=== PATIENT | male | born 1965 | race Two or more races ===

== ENCOUNTER 2018-05-13 18:05 | Emergency (ER) | payer BC, OTHER ==
[2018-05-13] MEDS ORDERED: Sodium Chloride 0.9% 10 ML Syringe FLUSH PRN (18:27)
[2018-05-13] MEDS ORDERED: Iopamidol 612 MG/ML 150 ML Bottle IVPUSH ONE (18:27)
[2018-05-13] MEDS ORDERED: HYDROmorphone 1 MG/ML Syringe IVPUSH ONE (18:30)
[2018-05-13] MEDS ORDERED: Sodium Chloride 0.9% 1,000 ML IV SCH (18:30)
--- NOTE | 2018-05-13 20:14 | EDM.PDOC ---
ED HPI GENERAL MEDICAL PROBLEM - General Chief Complaint: Trauma Stated Complaint: [facility] Time Seen by Provider: 05/13/18 18:13 Source of Information: Reports: Patient, RN Notes Reviewed - History of Present Illness INITIAL COMMENTS - FREE TEXT/NARRATIVE: 53 year old male had the large fork of a fork lift come loose from skid steer or unit it was attached to, fell striking his head, possibly upper back. Pt was wearing hard hat. Was either dazed or may have head brief LOC. Mild Craig now, moderate neck pain, Pain L thigh. He has been brought to [facility] by ambulance. This was called as a trauma alert due to mechanism of injury. He has some L chest pain with deep breathing. Does not feel short of breath. No abd pain, nausea, vomiting or unusual dizziness. Neck Pain Score (Numeric/FACES): 10 Bilateral Shoulder Pain Score (Numeric/FACES): 10 - Related Data Allergies Allergy/AdvReac Type Severity Reaction Status Date / Time No Known Allergies Allergy Verified 05/13/18 18:56 Home Meds: Home Meds Htn Med 05/13/18 [History] blood 05/13/18 [History] Past Medical History Cardiovascular History: Reports: Hypertension Social & Family History - Family History Family Medical History: Noncontributory - Tobacco Use Smoking Status *Q: Current Every Day Smoker Years of Tobacco use: 3 Packs/Tins Daily: 2 - Caffeine Use Caffeine Use: Reports: Coffee - Recreational Drug Use Recreational Drug Use: No Review of Systems - Review of Systems Review Of Systems: See Below Constitutional: Reports: No Symptoms Eyes: Reports: No Symptoms Ears: Reports: No Symptoms, Other (no discharge) Nose: Reports: No Symptoms Mouth/Throat: Reports: No Symptoms Respiratory: Reports: Pleuritic Chest Pain. Denies: Shortness of Breath Cardiovascular: Reports: Chest Pain (mild, gone) GI/Abdominal: Denies: Abdominal Pain, Nausea, Vomiting Musculoskeletal: Reports: Back Pain (mild upper back) Neurological: Reports: Dizziness, Headache. Denies: Numbness, Tingling, Trouble Speaking ED EXAM, GENERAL - Physical Exam Exam: See Below General Appearance: Alert, Mild Distress Eye Exam: Bilateral Eye: PERRL Ears: Normal External Exam, Normal Canal Nose: Normal Inspection Throat/Mouth: Normal Inspection Head: Atraumatic. No: Facial Swelling, Facial Tenderness Neck: Supple, Tender Midline (mild), Other (no visible swelling or bruising) Respiratory/Chest: No Respiratory Distress, Lungs Clear, Other (mild tenderness L ant. chest, no visible swelling or bruising) Cardiovascular: Regular Rate, Rhythm GI/Abdominal: Tender (mild tenderness R upper abd and L upper abd). No: Guarding, Rebound Extremities: Other (mild tenderness L thigh, no visible bruising or swelling, good ROM without pain) Neurological: Alert, Oriented, No Motor/Sensory Deficits Skin Exam: Warm, Dry, Normal Color Course - Vital Signs Last Recorded V/S: Last Vital Signs Temp 98.0 F 05/13/18 18:05 Pulse 67 05/13/18 21:39 Resp 16 05/13/18 21:39 BP 169/84 H 05/13/18 21:39 Pulse Ox 98 05/13/18 21:39 - Orders/Labs/Meds Labs: Laboratory Tests 05/13/18 05/13/18 Range/Units 18:55 18:55 WBC 8.81 (4.23-9.07) K/mm3 RBC 4.73 (4.63-6.08) M/mm3 Hgb 14.6 (13.7-17.5) gm/L Hct 43.6 (40.1-51.0) % MCV 92.2 (79.0-92.2) fl MCH 30.9 (25.7-32.2) pg MCHC 33.5 (32.2-35.5) g/dl RDW Std Deviation 40.6 (35.1-43.9) fL Plt Count 282 (163-337) K/mm3 MPV 10.6 (9.4-12.3) fl Neut % (Auto) 68.6 H (34.0-67.9) % Lymph % (Auto) 21.8 (21.8-53.1) % Warrick % (Auto) 5.6 (5.3-12.2) % Eos % (Auto) 3.4 (0.8-7.0) Baso % (Auto) 0.3 (0.1-1.2) % Neut # (Auto) 6.04 H (1.78-5.38) K/mm3 Lymph # (Auto) 1.92 (1.32-3.57) K/mm3 Warrick # (Auto) 0.49 (0.30-0.82) K/mm3 Eos # (Auto) 0.30 (0.04-0.54) K/mm3 Baso # (Auto) 0.03 (0.01-0.08) K/mm3 Sodium 141 (136-145) mEq/L Potassium 3.6 (3.5-5.1) mEq/L Chloride 105 (98-107) mEq/L Carbon Dioxide 26 (21-32) mEq/L Anion Gap 13.6 (5-15) BUN 13 (7-18) mg/dL Creatinine 0.8 (0.7-1.3) mg/dL Est Cr Clr Drug Dosing TNP Estimated GFR (MDRD) > 60 (>60) mL/min BUN/Creatinine Ratio 16.3 (14-18) Glucose 95 (74-106) mg/dL Calcium 8.5 (8.5-10.1) mg/dL Total Bilirubin 0.8 (0.2-1.0) mg/dL AST 28 (15-37) U/L ALT 39 (16-63) U/L Alkaline Phosphatase 65 (46-116) U/L Total Protein 6.5 (6.4-8.2) g/dl Albumin 3.7 (3.4-5.0) g/dl Globulin 2.8 gm/dL Albumin/Globulin Ratio 1.3 (1-2) Meds: Medications Discontinued Medications Generic Name Dose Route Start Last Admin Trade Name Freq PRN Reason Stop Dose Admin Hydromorphone HCl 1 mg 05/13/18 18:30 05/13/18 19:01 Dilaudid IVPUSH 05/13/18 18:31 1 mg ONETIME ONE Administration Sodium Chloride 1,000 mls @ 150 mls/hr 05/13/18 18:30 05/13/18 19:03 Normal Saline IV 150 mls/hr ASDIRECTED EDWINA Administration Iopamidol 150 ml 05/13/18 18:27 05/13/18 18:39 Isovue-300 (61%) IVPUSH 05/13/18 18:28 150 ml ONETIME ONE Administration Sodium Chloride 10 ml 05/13/18 18:27 05/13/18 18:41 Saline Flush FLUSH 10 ml ONETIME PRN Administration IV FLUSH - Re-Assessments/Exams Free Text/Narrative Re-Assessment/Exam: 05/15/18 13:54 CT of head, neck, chest, abd, pelvis were all normal. See Radiologist report for details. We did get him up walking after that and he did well with that. Discharge instr. as documented. Departure - Departure Time of Disposition: 20:12 Disposition: Home, Self-Care 01 Condition: Fair Clinical Impression: Concussion with brief (less than one hour) loss of consciousness Chest wall contusion Qualifiers: Encounter type: initial encounter Laterality: unspecified laterality Qualified Code(s): S20.219A - Contusion of unspecified front wall of thorax, initial encounter Contusion of left thigh Qualifiers: Encounter type: initial encounter Qualified Code(s): S70.12XA - Contusion of left thigh, initial encounter Cervical strain, acute Qualifiers: Encounter type: initial encounter Qualified Code(s): S16.1XXA - Strain of muscle, fascia and tendon at neck level, initial encounter - Discharge Information Instructions: Contusion, [id number] Referrals: PCP,None [Primary Care Provider] - Forms: ED Department Discharge, ED Return to Work/School Form Additional Instructions: The treatment for concussion is rest and time, no work tomorrow, headache is completely gone you may return to work Wednesday light duty until Wednesday and then full duty as tolerated. He may alternate Tylenol and ibuprofen as needed. Return to ED as needed if symptoms worsening in any way.
--- NOTE | 2018-05-14 15:30 | CT ---
Head CT Technique: Multiple axial sections through the brain were obtained. Intravenous contrast was not utilized. Comparison: No previous intracranial imaging is available. Findings: Ventricles along with basal cisterns and sulci over the convexities are within normal limits for the patient's age. No abnormal parenchymal densities are seen. No evidence of intracranial hemorrhage. No midline shift or mass effect is seen. Bone window settings were reviewed which show no acute calvarial abnormality. Visualized sinuses are clear. Impression: 1. Nothing acute is appreciated on noncontrast head CT exam. Diagnostic code #1 I agree with preliminary report from [facility], finalized on 05/13/18, 8:03 PM Central Time
--- NOTE | 2018-05-14 15:50 | CT ---
CT chest Technique: Multiple axial sections through the chest were obtained. Intravenous contrast was utilized. Comparison: No prior chest imaging. Findings: Mediastinum and hilar regions appear within normal limits. Incidental calcified lymph node is seen within the mediastinum. No pericardial thickening is seen. Lungs are clear with no acute pulmonary contusion or other parenchymal change. No pneumothorax is seen. No pleural effusions are identified. No discrete rib fracture is seen. Slight degenerative change is noted within the spine without acute abnormality. Reconstructed sagittal images of the sternum appear intact. Impression: 1. Nothing acute is seen on CT study of the chest. Diagnostic code #2 I agree with preliminary report from [facility], finalized on 05/13/18, 8:[address] abdomen and pelvis Technique: Multiple axial sections were obtained from above the dome of the diaphragm inferiorly through the pubic symphysis. Intravenous contrast was utilized. No oral contrast has been given. Delayed images were also obtained through the abdomen and pelvis. Comparison: No prior abdominal imaging. Findings: Very small hiatal hernia is noted. Liver contains no focal abnormality. Gallbladder contains no abnormal calcifications. Spleen appears within normal limits. Adrenal glands show no abnormality. Pancreas is normal. Kidneys show symmetric contrast enhancement without hydronephrosis or mass. Aorta shows no aneurysm. No retroperitoneal adenopathy or mesenteric abnormalities are seen. No pelvic mass or adenopathy is seen. Delayed images show contrast within the ureters. No ureteral dilatation is seen. No extravasation of any contrast is noted. Contrast is noted within the bladder. Bone window settings were reviewed which show scattered degenerative change within the thoracic spine. Bilateral spondylitic defects are noted at L5-S1. Small sclerotic lesion is noted within the right iliac wing felt compatible with incidental bone island. Additional bone island noted within the left hip. Impression: 1. Incidental findings. Nothing acute is seen on CT study of the abdomen and pelvis. Diagnostic code #2 I agree with preliminary report from [facility], finalized on 05/13/18, 7:52 PM Central Time
--- NOTE | 2018-05-14 15:50 | CT ---
CT cervical spine Technique: Multiple axial sections were obtained from above C1 inferiorly through the T1 vertebral body. Reconstructed sagittal and coronal images were reviewed. Comparison: No prior cervical spine imaging. Findings: Vertebral body heights and disc spaces are maintained. Vertebral bodies and posterior arches are intact. No fracture is seen. No bony central or lower bony neural foraminal stenosis is seen. Incidental ligamentum nuchal calcification is seen. No abnormal subluxation is seen. Impression: 1. Nothing acute is appreciated on CT study of the cervical spine. Diagnostic code #2 I agree with preliminary report from [facility], finalized on 05/13/18, 7:52 PM Central Time
== END 2018-05-13 20:50 | disposition home or self-care (01) ==
LOC: JD.ED 18:05
DX: S06.0X9A Concussion with loss of consciousness of unspecified duration, initial encounter (principal); S20.212A Contusion of left front wall of thorax, initial encounter; S70.12XA Contusion of left thigh, initial encounter; S16.1XXA Strain of muscle, fascia and tendon at neck level, initial encounter; I10 Essential (primary) hypertension; F17.210 Nicotine dependence, cigarettes, uncomplicated; Z79.899 Other long term (current) drug therapy; W20.8XXA Other cause of strike by thrown, projected or falling object, initial encounter
CPT/HCPCS: 36415; 70450; 71260; 72125; 74177; 80053; 85025; 96361; 96374; 99285; J1170; J7040; Q9967; 99284